=== PATIENT | female | born 1990 | race Caucasian/White ===

== ENCOUNTER 2021-01-14 05:05 | Inpatient (IN) | payer SELFPAY ==
--- NOTE | 2021-01-10 16:50 | PCM.HP.OB ---
Documented by User: Dr. Alexandria Alvarado MD 01/10/21 16:54 HPI - General HPI Narrative BEAU LOPEZ, is a 30 F who presents for for breech presentation. Maternal Data Information Final ARLEY: 01/21/21 [facility] Home Medications levothyroxine [Synthroid] PO QODAY 01/14/21 [History Last Taken 01/13/21] prenat.vits,windy,dds-mhhy-exinn [ Vitamin] tab 01/14/21 [History Last Taken 01/13/21] Allergy/AdvReac Type Severity Reaction Status Date / Time amoxicillin Allergy Rash Verified 01/14/21 05:20 oxycodone Allergy Other Verified 01/14/21 05:23 soap AdvReac Other Verified 01/14/21 05:23 Social History Smoking Status: Never smoker History Elective abortions Hx Para 0 Spontaneous abortions Hx # Term Pregnancies Ectopic pregnancies Hx # Pregnancies Multiple births # of living children Physical Exam Const alert, oriented x3 and no apparent distress Resp normal respiratory effort Cardio regular rate and regular rhythm GI non-tender, non-distended and no masses Inspection: gravid Labs Labs Labs: Blood Type A POSITIVE Antibody Screen NEGATIVE Hct 36.5 % (37-47) L Hgb 12.2 g/dL (12.0-15.0) See [facility] prenatals Assessment & Plan (1) Breech presentation: COMMENT: 39 weeks PLAN: Admit to L&D MOD - patient counseled on R/B/A and wishes to proceed with section Documented by User: Dr. Laila Funes MD 01/14/21 08:26 HPI - General General Date of Admission: 01/14/21 [facility] Home Medications levothyroxine [Synthroid] PO QODAY 01/14/21 [History Last Taken 01/13/21] prenat.vits,windy,lmw-ydgh-skzsy [ Vitamin] tab 01/14/21 [History Last Taken 01/13/21] Allergy/AdvReac Type Severity Reaction Status Date / Time amoxicillin Allergy Rash Verified 01/14/21 05:20 oxycodone Allergy Other Verified 01/14/21 05:23 soap AdvReac Other Verified 01/14/21 05:23 Social History Smoking Status: Never smoker History Elective abortions Hx Para 0 Spontaneous abortions Hx # Term Pregnancies Ectopic pregnancies Hx # Pregnancies Multiple births # of living children Labs Labs Labs: Blood Type A POSITIVE Antibody Screen NEGATIVE Hct 36.5 % (37-47) L Hgb 12.2 g/dL (12.0-15.0)
[2021-01-14] VITALS (17 sets, daily range): BP systolic 94–145; BP diastolic 56–98; PULSE 68–103; RESP 14–18; TEMP 35.9–36.6; O2SAT 96–100; BMI 33.1
[2021-01-14] MEDS: Lactated Ringers 1,000 ML 999 ML IV (05:20)
[2021-01-14 05:33] LABS: Absolute Lymphocyte Count 2.61 X10^3/uL (0.83-4.51); Absolute Neutrophil Count 6.4 X10^3/uL (2.0-7.7); Basophil# 0.02 X10^3/uL; Basophil% 0.2 % (0-1); Eosinophil# 0.13 X10^3/uL; Eosinophils% 1.3 % (0-5); Hematocrit 36.5 % (37-47); Hemoglobin 12.2 g/dL (12.0-15.0); Lymphocyte # 2.61 X10^3/ul (0.83-4.51); Lymphocyte % 26.9 % (19-41); Mean Corp Hgb Conc 33.4 g/dL (32-36); Mean Corpuscular Hgb 28.7 pg (27.0-32.0); Mean Corpuscular Volume 85.9 fL (81-99); Mean Platelet Vol. 10.6 fl (6.2-12.0); Monocyte# 0.51 X10^3/uL; Monocyte% 5.3 % (0-10); NRBC Flagged by Analyzer 0 % (0-5); Neutrophil # 6.35 X10^3/uL (2.7-7.7); Neutrophil % 65.4 % (47-70); Platelet Count 225 K/mm3 (150-450); RBC Distribution Width CV 14.3 % (11.6-14.6); RBC Distribution Width SD 43.8 fl (35.1-43.9); Red Blood Count 4.25 M/mm3 (4.2-5.4); White Blood Count 9.7 K/mm3 (4.4-11.0)
[2021-01-14] MEDS: Acetaminophen 500 MG Tablet 1000 MG PO ×3 (05:44→18:14)
[2021-01-14] MEDS: Lactated Ringers 1,000 ML 150 ML IV (06:21)
[2021-01-14] MEDS: Sodium Citrate/Citric Acid 30 ML UDC PO (07:19)
[2021-01-14] MEDS: Cefazolin 2 GM in 0.9% Normal Saline 100 ML IV (07:35)
--- NOTE | 2021-01-14 08:20 | EX.PCM.OBRPT ---
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 She was then placed in the supine position. She was prepped and draped in the normal sterile fashion. Anesthesia was found to be adequate. At this time a Pfannenstiel skin incision was made with a knife was carried down to the underlying layer of the fascia. The fascial incision was then extended laterally using curved Rojo scissor. Tensions was then turned to the superior aspect of the fascial edge was grasped with 2 straight Tate clamps tented up and the rectus muscle dissected off sharply using curved Rojo scissor. Attention was then turned to the inferior aspect where again [place] clamps were placed in the rectus muscles were tented up and the fascia was dissected off sharply using the curved Rojo scissor. Rectus muscles were then in the midline bluntly and peritoneum was entered bluntly. Gentle opposing traction was placed. At this time the vesicouterine peritoneum was identified. Scalpel was used to make a uterine incision in a low transverse fashion. The uterus was then entered bluntly gentle opposing traction was placed to extend this incision. Membranes were ruptured clear. 's buttocks was brought to the uterine incision and was delivered atraumatically followed by the rest of infants body and head. Cord was clamped and cut infant was handed to the waiting nursery team. The Placenta was removed from the uterus. The uterus was then removed from the abdominal cavity. The uterus was cleared of all clots and debris using a lap. At this time the uterine incision was reapproximated using #1 Vicryl in a running locked fashion. followed by a second layer using 1-0 vicryl in a figure of eight fashion. Hemostasis was appreciated. Posterior cul-de-sac was then cleared of all clots and debris. Uterus was placed back in the abdominal cavity. Gutters were cleared of all clots and debris. Uterine incision was reevaluated and noted to be of excellent hemostasis. Aritsa placed. At this time the peritoneum and muscle were grasped with Kellys reapproximated using #2 Vicryl suture in a running fashion. Sonja placed over muscle. Fascia was then reapproximated using #1 Vicryl in a running fashion. Subcu layer was reapproximated with #2 0 plain gut suture in an interrupted fashion. Subcu layer was closed using 4-0 Monocryl in a subcu fashion. Dry sterile dressing was applied. Instrument lap needle count correct ?2. Anticipated normal postoperative course. Presentation: Positive for Dax Breech Amniotic Membrane Rupture Type: Artificial Amniotic Fluid Description: Clear Placental Delivery Description: Manual Removal Placenta Disposition: [facility] Specimen(s) Sent to Pathology: none Cord Vessel Description: 3 Vessels Cord Entanglement: None Cord Gases: ABG and VBG A Gender: Male (1 minute): 8 (5 minute): 9 Delayed Cord Clamping: No Complications Risks of Surgery Discussed w/Patient: Bleeding, Anesthesia Risks, Infection and Injury to surrounding structure(s) including bowel and bladder Complications: none Admit VTE Documentation VTE Present on Admission: Yes VTE Mechan Device Prophylaxis: SCD's VTE Pharm Prophylaxis Ordered: No Reason Prophylaxis Not Ordered: Procedure Not Indicated
[2021-01-14] MEDS: Oxytocin 30 units/NS 500 ml 30 UNITS/500 ML IV.SOLN 167 UNITS IV (08:21)
[2021-01-14] MEDS: Ketorolac 30 MG/ML Syringe IV ×3 (08:55→20:18)
[2021-01-14] MEDS: Senna/Docusate Sodium 1 Tablet PO (12:03)
[2021-01-15] MEDS: Acetaminophen 500 MG Tablet 1000 MG PO ×2 (00:36→06:24)
[2021-01-15 00:37] VITALS: BP 124/80; PULSE 71; RESP 16; TEMP 35.9; O2SAT 97
[2021-01-15] MEDS: Ketorolac 30 MG/ML Syringe IV (02:41)
[2021-01-15] MEDS: 0.9% Saline Lock 10 ML Syringe IV (02:41)
[2021-01-15 04:50] VITALS: BP 123/82; PULSE 73; RESP 16; TEMP 36; O2SAT 98
[2021-01-15 05:39] LABS: Hematocrit 33.4 % (37-47); Hemoglobin 11.3 g/dL (12.0-15.0); Mean Corp Hgb Conc 33.8 g/dL (32-36); Mean Corpuscular Hgb 29.5 pg (27.0-32.0); Mean Corpuscular Volume 87.2 fL (81-99); Mean Platelet Vol. 9.9 fl (6.2-12.0); Platelet Count 167 K/mm3 (150-450); RBC Distribution Width CV 14.3 % (11.6-14.6); RBC Distribution Width SD 45.1 fl (35.1-43.9); Red Blood Count 3.83 M/mm3 (4.2-5.4)
--- NOTE | 2021-01-15 07:52 | PCM.PN.OB ---
Subjective Subjective patient seen at bedside, doing well. Patient reports good pain control. lochia mild. Objective Data Objective Data Vital Signs: Vital Signs Temp Pulse Resp BP Pulse Ox 96.8 F L 73 16 123/82 H 98 01/15/21 04:50 01/15/21 04:50 01/15/21 04:50 01/15/21 04:50 01/15/21 04:50 Oxygen Delivery Method Room Air Weight: 98.9 kg Body Mass Index (BMI) 33.1 Intake & Output: Intake and Output for Last 24 Hours 01/13/21 01/14/21 01/15/21 23:59 23:59 23:59 Intake Total 3750 / 3750 Output Total 1325 / 1325 650 / 650 Balance 2425 / 2425 -650 / -650 Lab / Micro Data Result Diagrams: 01/15/21 05:30 Labs: Laboratory Results - last 24 hr 01/15/21 05:30 WBC 10.0 RBC 3.83 L Hgb 11.3 L Hct 33.4 L MCV 87.2 MCH 29.5 MCHC 33.8 RDW Std Deviation 45.1 H RDW Coeff of Sb 14.3 Plt Count 167 MPV 9.9 Micro: Microbiology 01/14/21 05:35 Mucosa - Nose SARS-CoV-2 Antigen (Rapid) - Final Physical Exam Narrative dressing dry and intact. Const alert and oriented x3 General Appearance: cooperative HEENT normocephalic Neck General: normal visual inspection GI soft to palpation and non-distended GI Narrative: Fundus firm Extremity normal to inspection and no calf tenderness Skin no rashes or lesions noted Neuro oriented x3 and CN's II-XII intact bilaterally Psych mental status grossly normal Assessment & Plan (1) Delivery by section: PLAN: POD# 1 , Doing well Routine care pain mgmt monitor VS ambulation dc home per patient request
--- NOTE | 2021-01-15 07:53 | PCM.DC ---
Discharge Instructions Diet Discharge Diet: No restrictions Activity May resume sexual activity in: 6-8 weeks Lifting Restrictions: 25 Dressing / Incision Call your doctor if your incision/area has: Continuous Slow Oozing, Sudden Increased Bleeding, Increased Pain/ Swelling, Increased Redness, Foul Smelling Discharge and Swelling at the incision site Call your doctor if you observe: Fever of 101 or Higher, Inability to urinate, Using more than 1 pad per hour and Uncontrolled pain Additional Dressing/Incision Instructions:: remove dressing at 7 days post op- if it becomes saturated prior to that time you may remove it. Let soap and water run over incision sites and dab dry. keep incision clean and dry. Follow Up Care Please Follow Up With: Laila Funes MD When: 1-2 weeks post of incision check and again at 6 weeks post . [phone] Test Results: Test results from this visit will be discussed in further detail at your follow-up appointment, if applicable. Discharge Plan Admission Admit Date/Time: 01/14/21 05:05 Attending Provider: Laila Funes Primary Care Provider: Aida Lau Instructions Forms: Information Discharge Orders/Prescriptions Prescriptions: New acetaminophen 500 mg Tablet 1,000 mg PO Q6 Qty: 0 RF: 0 ibuprofen 600 mg Tablet 600 mg PO Q6H Qty: 0 RF: 0 simethicone [Mi-Acid Gas Relief(simethicon)] 80 mg Tablet,Chewable 80 mg PO PCHS PRN (Reason: Indigestion/stomach pain) Qty: 0 RF: 0 Continued levothyroxine [Synthroid] 175 mcg tablet PO QODAY RF: 0 prenat.vits,windy,cwo-ibbn-wpphp Tablet RF: 0 Referrals / Follow Up: Aida Lau DO [Primary Care Provider] - Disposition Disposition (needs filled in before D/C Order can be placed): Home, Self Care
--- NOTE | 2021-01-15 07:56 | DS.PCM_ITS ---
Discharge Summary Date of Admission: 01/14/21 Date of Discharge: 01/15/21 Summary: Patient was admitted to [facility] on January 14, 2021 for a scheduled primary section for breech presentation at 39 weeks gestation. Patient underwent a low transverse section without complication and was discharged home on postoperative day #1 on January 15, 2021 stable condition. Meaningful Use Info Meaningful Use Diagnoses (Choose all that apply): None applicable Discharge Plan Admission Admit Date/Time: 01/14/21 05:05 Attending Provider: Laila Funes Primary Care Provider: Aida Lau Instructions Forms: Information Discharge Orders/Prescriptions Prescriptions: New acetaminophen 500 mg Tablet 1,000 mg PO Q6 Qty: 0 RF: 0 ibuprofen 600 mg Tablet 600 mg PO Q6H Qty: 0 RF: 0 simethicone [Mi-Acid Gas Relief(simethicon)] 80 mg Tablet,Chewable 80 mg PO PCHS PRN (Reason: Indigestion/stomach pain) Qty: 0 RF: 0 Continued levothyroxine [Synthroid] 175 mcg tablet PO QODAY RF: 0 prenat.vits,windy,lbq-mpdk-lcnji Tablet RF: 0 Referrals / Follow Up: Aida Lau DO [Primary Care Provider] - Disposition Disposition (needs filled in before D/C Order can be placed): Home, Self Care
[2021-01-15 08:41] VITALS: BP 124/78; PULSE 80; RESP 16; TEMP 36.6
[2021-01-15] MEDS: Levothyroxine 175 MCG Tablet PO (08:50)
[2021-01-15] MEDS: Senna/Docusate Sodium 1 Tablet PO (08:51)
[2021-01-15] MEDS: Ibuprofen 600 MG Tablet PO (08:51)
[2021-01-15 15:00] VITALS: BP 123/80; PULSE 88; RESP 18; TEMP 36.4; O2SAT 97
== END 2021-01-15 15:15 | disposition home or self-care (01) | DRG 788 ==
PROVIDERS: Obstetrics & Gynecology; Admitting Provider Obstetrics & Gynecology; PCP Internal Medicine; Visit Provider Obstetrics & Gynecology
PROC: 10D00Z1 Extraction of Products of Conception, Low, Open Approach (ICD-10-PCS; CPT 59514; principal; 2021-01-14 07:15)
DX: O32.1XX0 Maternal care for breech presentation, not applicable or unspecified (principal); Z3A.39 39 weeks gestation of pregnancy; Z37.0 Single live birth
CPT/HCPCS: 85025; 85027; 86850; 86900; 86901; 87426; 99218; J7120; A4216; G0378; J2405

== ENCOUNTER 2021-11-03 07:52 | Outpatient (CLI) | payer SELFPAY ==
--- NOTE | 2021-11-03 07:57 | BI_ITS ---
MAMMOGRAPHY - BILATERAL SCREENING 3-D TOMOSYNTHESIS REASON FOR EXAM: Female, 31 years old. SCREENING PERTINENT HISTORY: No significant family history. TECHNIQUE: 2-D mammograms and 3-D Tomosynthesis of the breast (s) were performed. CAD was performed. COMPARISON: None. FINDINGS: The breast composition is composed of scattered fibroglandular density. Scattered benign calcifications are seen. Subcentimeter oval obscured equal density mass in the upper-outer quadrant right breast at posterior depth and focal compression views are recommended for further evaluation. No dominant mass left breast. No suspicious calcifications.. No architectural distortion is identified. There is no skin thickening or retraction. BI/SCRN MAMM (CAD)W/NO BILAT IMPRESSION: Subcentimeter oval obscured equal density mass in the upper outer quadrant right breast at posterior depth and a focal compression views are recommended for further evaluation. ASSESSMENT CATEGORY: BIRADS Category 0: Incomplete. Need additional imaging evaluation as above. A letter regarding these results will be sent to the patient by the facility within 30 days. FOLLOW UP RECOMMENDATION: Additional imaging recommended as above. (E) Approximately 10% of breast cancers are not detected by mammography. A normal mammogram should not delay biopsy of a clinically suspicious abnormality. Electronically Signed: Mg Quigley MD at 8:56 EDT ,
== END 2021-11-03 23:59 | disposition home or self-care (01) ==
PROVIDERS: PCP Internal Medicine; Visit Provider Internal Medicine
DX: Z12.31 Encounter for screening mammogram for malignant neoplasm of breast (principal)
CPT/HCPCS: 77063; 77067

== ENCOUNTER → 2021-11-04 | Outpatient (CLI) | payer SELFPAY ==
--- NOTE | 2021-11-04 13:30 | BI_ITS ---
MAMMOGRAPHY - UNILATERAL DIAGNOSTIC: RIGHT BREAST REASON FOR EXAM: Female, 31 years old. DENSITY PERTINENT HISTORY: Non-contributory. TECHNIQUE: Digital examination. Mediolateral oblique (MLO) and craniocaudad (CC) views of the breast were obtained. CAD: CAD was not performed on this study. COMPARISON: 11/03/2021 FINDINGS: Breast Composition: There are scattered areas of fibroglandular density. Focal compression views confirm a subcentimeter oval circumscribed equal density mass in the upper-outer quadrant right breast at posterior depth and ultrasound is recommended for further evaluation. No other significant abnormalities are identified. BI/DIAG MAMM W/CAD, UNILAT IMPRESSION: Further ultrasonographic evaluation recommended, as described above. ASSESSMENT CATEGORY: BIRADS Category 0: Incomplete. Need additional imaging evaluation. A letter regarding these results will be sent to the patient by the facility within 30 days. FOLLOW-UP RECOMMENDATION: Ultrasound recommended. (I) Approximately 10% of breast cancers are not detected by mammography. A normal mammogram should not delay biopsy of a clinically suspicious abnormality. Electronically Signed: Mg Quigley MD at 14:10 EDT ,
--- NOTE | 2021-11-04 14:19 | US_ITS ---
STUDY: ULTRASOUND BREAST - RIGHT REASON FOR EXAM: Female, 31 years old. Abnormal screening mammogram. TECHNIQUE: Axial and longitudinal images of the RIGHT breast were performed with a high resolution ultrasound transducer. # OF IMAGES: 43 COMPARISON: Diagnostic mammogram earlier today, screening mammogram 11/03/2021 FINDINGS: RIGHT Breast: Heterogeneous background echotexture. At 10 o''clock, 9 cm from nipple, ultrasound confirmed a 4 mm oval parallel circumscribed hypoechoic mass with no posterior features with some central increased echogenicity consistent with an intramammary lymph node corresponding to the mass into mammography. Furthermore, there is an adjacent smaller 3 mm cyst.: US/Breast Limited Unilateral IMPRESSION: Small intramammary lymph node in adjacent cyst corresponding to the mass seen on mammography. ASSESSMENT CATEGORY: BIRADS Category 2: Benign. A letter regarding these results will be sent to the patient by the facility within 30 days. Electronically Signed: Mg Quigley MD at 17:02 EDT ,
== END | disposition home or self-care (01) ==
PROVIDERS: PCP Internal Medicine; Referring Provider Internal Medicine; Visit Provider Internal Medicine
DX: R92.8 Other abnormal and inconclusive findings on diagnostic imaging of breast (principal)
CPT/HCPCS: 76642; 77065